=== PATIENT | female | born 1945 | race Caucasian/White ===

== ENCOUNTER → 2024-01-05 07:50 | Outpatient (REF) | payer MEDICARE, OTHER, SELFPAY | LOC: RAD 07:50 | PROVIDERS: ATTENDING PHYSICIAN Nurse Practitioner Family | DX: M81.0 Age-related osteoporosis without current pathological fracture (principal) | CPT/HCPCS: 77063; 77067 ==

== ENCOUNTER → 2024-02-13 07:23 | Outpatient (REF) | payer MEDICARE, OTHER, SELFPAY | LOC: RAD 07:23 | PROVIDERS: ATTENDING PHYSICIAN Nurse Practitioner Family | DX: M81.0 Age-related osteoporosis without current pathological fracture (principal) | CPT/HCPCS: 77080 ==

== ENCOUNTER 2024-04-27 22:45 | Emergency (ER) | payer MEDICARE, OTHER, SELFPAY ==
[2024-04-27 22:48] VITALS: BP 148/78
[2024-04-28 00:10] VITALS: BP 137/60
[2024-04-28 02:01] LABS: Hematocrit 38.4 % (37.0-47.0); Hemoglobin 12.6 g/dL (12.0-16.0); Mean Corp Hgb Conc. 32.8 g/dL (33.0-37.0); Mean Corpuscular Hgb 28.6 pg (27.0-31.0); Mean Corpuscular Volume 87.1 fL (81.0-99.0); Mean Platelet Volume 9.5 fL (7.4-10.4); Platelet Count 227 10^3/uL (130-400); Red Blood Cell Count 4.41 10^6/uL (4.20-5.40); Red Cell Dist. Width 14.8 % (11.5-14.5); White Blood Cell Count 4.5 10^3/uL (4.8-10.8)
[2024-04-28 02:15] LABS: Blood Urea Nitrogen 26 mg/dl (7-17); Calcium 8.8 mg/dl (8.4-10.2); Carbon Dioxide 28 mmol/L (22-30); Chloride 104 mmol/L (98-107); Glucose 85 mg/dl (70-99); Magnesium 2.2 mg/dl (1.6-2.3); Potassium 4.1 mmol/L (3.5-5.1); Sodium 137 mmol/L (135-145); eGFR > 60.00
[2024-04-28 02:18] VITALS: BP 142/54
[2024-04-28 02:27] LABS: Troponin I < 0.012 ng/ml
--- NOTE | 2024-04-28 02:48 | ED.GENMED ---
History of Present Illness
General
Chief Complaint: Extremity Pain (non-traumatic)
Source: patient
Exam Limitations: none
Time Seen by Provider: 04/28/24 01:12
Nursing documentation reviewed up to this point in time: agreed with
History of Present Illness
History of Present Illness:
Patient presents to ED secondary to sudden onset of left arm pain, on approximately 4 hours prior to arrival. Patient states that he had fallen asleep early in the afternoon. Around 9 PM, she woke up as her phone vibrated with incoming text
message. She lifted her left arm backwards to turn on the lamp. That is when she experienced left shoulder discomfort. When she laid her arm down, slowly shoulder discomfort improved, but patient at the same time started to experience left arm
numbness tingling sensation. Patient was concerned that she may be having heart attack. Denies headache. Denies neck pain. Denies chest pain. Denies shortness of breath. Denies dizziness. Denies nausea or vomiting. Denies previous history of
similar symptoms. However, patient does report carrying heavy grocery bags 1 day prior. Patient denies history of stroke or heart attack. Denies recent injury. Denies recent change in medications or diet. At the time of evaluation ED, patient
states that her symptoms have resolved completely.
Past History
Past History
ED Past Medical History: None
ED Past Surgical History: Gynecological and Orthopedic
Social History
Tobacco: Non-smoker
Alcohol: Former (Recovering alcoholic)
Drug: None
Living: alone
Employment: Not employed
Family History
Family History: Other ([place])
Review of Systems
Review of Systems
Allergies reviewed?: Yes
Constitutional: Reports no symptoms; Denies fever or chills
Respiratory: Reports no symptoms; Denies trouble breathing
Cardiac: Reports no symptoms; Denies chest pain
ABD/GI: Reports no symptoms; Denies abdominal pain, nausea or vomiting
: Reports no symptoms
Musculoskeletal: Reports other (arm/shoulder pain)
Skin: Reports no symptoms
Neurological: Reports numbness; Denies dizzy, headache or weakness
Phy Exam
Physical Exam
Physical Exam:
Physical Exam
General: no apparent distress, not acutely ill. afebrile
Head: nc/at. eomi
Neck: supple. no meningeal signs. normal range of motion
Heart: s1/s2 regular rate and rhythm, no murmur. equal radial pulses.
Lungs: no acute respiratory distress. clear bilaterally
Abdomen: normal bowel sounds. not tender.
Neuro: alert and oriented. no focal neurological deficits
Skin: no rash
Psychiatric: well kept. interactive and cooperative
Extremities: no edema.
Course
Orders/Labs/Results
Orders:
Orders
04/27/24 22:51
EKG [Electrocardiogram (*1)] Urgent
Reason for Study: Chest Pain
EKG- Treatment ONCE
04/28/24 01:35
CT Head W/o Iv Contrast Urgent
Comment:
Reason For Exam: left arm numbness
04/28/24 01:54
Basic Metabolic Panel Urgent
Complete Blood Count/No Diff Urgent
Magnesium Urgent
Troponin I Urgent
Abnormal Lab Results
04/28/24
01:54
WBC 4.5 L 10^3/uL
(4.8-10.8)
MCHC 32.8 L g/dL
(33.0-37.0)
RDW 14.8 H %
(11.5-14.5)
BUN 26 H mg/dl
(7-17)
04/28/24 01:54
04/28/24 01:54
Vital Signs
Initial and Last Documented VS:
Initial Vital Signs
Temp Pulse Resp BP Pulse Ox
98 F 56 16 148/78 100
04/27/24 22:48 04/27/24 22:48 04/27/24 22:48 04/27/24 22:48 04/27/24 22:48
Last Documented Vital Signs
Temp Pulse Resp BP Pulse Ox
98 F 57 13 145/57 100
04/27/24 22:48 04/28/24 05:00 04/28/24 05:00 04/28/24 04:00 04/28/24 05:00
MDM/Problems Addressed
MDM/Problems Addressed:
Patient with an unremarkable workup in ED, including CT head and blood work, along with EKG. Patient's presenting symptoms less likely CVA or ACS, but more likely musculoskeletal in etiology, as symptoms started when she reached behind her head,
likely causing nerve impingement. As such, patient will be discharged home in stable condition, with recommendation to follow-up with her PCP for reevaluation as an outpatient, with consideration to return to ED with recurrent symptoms.
*EKG
Interpreted by ED Provider?: Yes
EKG Intrepretation Date: 04/28/24
Heart Rate: 55
Rate: bradycardiac
Rhythm: sinus
[place]: normal axis
Interval: normal interval
*Critical Care Note
Total Time (30-74mins, 75-104mins- exclusive of procedures): Not Applicable
ED Attending Note
-
Portions of this chart may have been created with voice recognition software.� Occasional wrong word or��sound alike� substitutions may have occurred due to the inherent limitations of voice recognition software.
Discharge Plan
Departure
Patient Disposition: Home (Routine Discharge)
Date of Disposition: 04/28/24
Time of Disposition: 02:54
Patient with high blood pressure during this ER visit?: Yes
Discharge Problem:
Musculoskeletal pain
Instructions: Musculoskeletal Pain
Prescriptions:
No Action
fluoxetine 10 MG capsule
40 tab PO DAILY
Referrals:
Erica Garcia CRNP [Family Provider] -
Activity Restrictions/Additional Instructions:
As discussed, please follow-up with your primary care physician for reevaluation. Please consider return to ED with recurrent symptoms.
Interventions
Interventions:
*Risk Screen - Suicide Last Done: 04/27/24 22:48
*General Assessment Last Done: 04/27/24 22:48
*Neglect/Abuse Screening Last Done: 04/27/24 22:48
ED- Fall Risk Assessment Last Done: 04/28/24 05:00
*ED COVID-19 Vaccine History Last Done: 04/28/24 00:02
*Nursing Disposition Last Done: 04/28/24 05:00
ED-Skin Assessment Last Done: 04/28/24 00:05
ED-Peripheral Vascular Assessment Last Done: 04/28/24 00:02
ED-Musculoskeletal Assessment Last Done: 04/28/24 00:02
Discharge Date and Time
Discharge Date/Time: 04/28/24 05:00
Print Language: BAHRAINI
[2024-04-28 03:00] VITALS: BP 131/51
[2024-04-28 04:00] VITALS: BP 145/57
== END 2024-04-28 05:00 | disposition home or self-care (01) ==
LOC: EMR 22:45
PROVIDERS: EMERGENCY PHYSICIAN Emergency Medicine; FAMILY PHYSICIAN Nurse Practitioner Family
DX: M79.18 Myalgia, other site (principal)
CPT/HCPCS: 99284; 70450; 80048; 83735; 84484; 85027; 93005

== ENCOUNTER 2024-05-22 11:53 | Outpatient (RCR) | payer MEDICARE, OTHER, SELFPAY | END 2024-05-22 14:18 | disposition home or self-care (01) | LOC: RPT 11:53 | PROVIDERS: ATTENDING PHYSICIAN Orthopaedic Surgery; FAMILY PHYSICIAN Nurse Practitioner Family | DX: M25.559 Pain in unspecified hip (principal); Z91.81 History of falling; Z73.6 Limitation of activities due to disability | CPT/HCPCS: 97110; 97112; 97161; 97535 ==

== ENCOUNTER → 2024-12-11 07:38 | Outpatient (REF) | payer MEDICARE, OTHER, SELFPAY ==
[2024-12-11 09:00] LABS: Hematocrit 39.2 % (37.0-47.0); Hemoglobin 12.4 g/dL (12.0-16.0); Mean Corp Hgb Conc. 31.6 g/dL (33.0-37.0); Mean Corpuscular Volume 86.9 fL (81.0-99.0); Nucleated Red Blood Cells % 0 %; Platelet Count 261 10^3/uL (130-400); Red Cell Dist. Width 14.8 % (11.5-14.5)
[2024-12-11 09:06] LABS: Urine Character Clear (Clear)
[2024-12-11 10:08] LABS: ALT (SGPT) 19 U/L (0-35); AST (SGOT) 25 U/L (14-36); Albumin 4.2 g/dl (3.5-5.0); Alkaline Phosphatase 94 U/L (38-126); Blood Urea Nitrogen 25 mg/dl (7-17); Calcium 9.3 mg/dl (8.4-10.2); Carbon Dioxide 28 mmol/L (22-30); Chloride 103 mmol/L (98-107); Glucose 83 mg/dl (70-99); HDL Cholesterol 88 mg/dl; LDL Cholesterol, Calculated 117 mg/dl; Potassium 5.5 mmol/L (3.5-5.1); Sodium 134 mmol/L (135-145); Total Protein 6.4 g/dl (6.3-8.2); Very Low Density Lipoprotein 13 mg/dl (0-30); eGFR > 60.00
[2024-12-11 12:19] LABS: Vitamin D, 25-OH*** 50.8 ng/mL (30-80)
[2024-12-11 12:52] LABS: Vitamin B12 919 pg/ml (239-931)
== END ==
LOC: REG 07:38
PROVIDERS: ATTENDING PHYSICIAN Nurse Practitioner Family
DX: Z13.89 Encounter for screening for other disorder (principal); Z13.1 Encounter for screening for diabetes mellitus; Z13.0 Encounter for screening for diseases of the blood and blood-forming organs and certain disorders involving the immune mechanism; E78.00 Pure hypercholesterolemia, unspecified; E53.8 Deficiency of other specified B group vitamins; E55.9 Vitamin D deficiency, unspecified
CPT/HCPCS: 36415; 80053; 80061; 81003; 82306; 82607; 85025

== ENCOUNTER → 2025-01-09 07:48 | Outpatient (REF) | payer MEDICARE, OTHER, SELFPAY | LOC: WDC 07:48 | PROVIDERS: ATTENDING PHYSICIAN Nurse Practitioner Family | DX: Z12.31 Encounter for screening mammogram for malignant neoplasm of breast (principal) | CPT/HCPCS: 77063; 77067 ==

== ENCOUNTER 2025-01-22 09:12 | Emergency (ER) | payer MEDICARE, OTHER, SELFPAY ==
[2025-01-22 09:27] VITALS: BP 133/61
--- NOTE | 2025-01-22 11:07 | ED.GENMED ---
History of Present Illness
General
Chief Complaint: Musculo-Skeletal Complaint
Source: patient
Exam Limitations: none
Time Seen by Provider: 01/22/25 10:53
Nursing documentation reviewed up to this point in time: agreed with
History of Present Illness
History of Present Illness:
79-year-old female with past medical history of previous alcohol use sober for over 20+ years presents to the ER for evaluation of right foot pain. She started with some right foot pain yesterday but denies any injury. She denies any redness
swelling fever chills.
Past History
Past History
ED Past Medical History: None
ED Past Surgical History: Gynecological and Orthopedic
Social History
Tobacco: Non-smoker
Alcohol: Former (Recovering alcoholic)
Drug: None
Living: alone
Employment: Not employed
Family History
Family History: Other ([place])
Phy Exam
General Physical Exam
General Presentation: no apparent distress
General age: appears stated age
General Skin: warm and dry
General Habitus: normal
General Mental: alert
General Hydration: appears well hydrated
Neurological Exam
Neurological Exam: alert and oriented x3
Musculoskeletal Exam
Musculoskeletal Exam: other (Strong distal pulses to right lower extremity with no obvious swelling or erythema no bony tenderness no calf tenderness)
Skin Exam
Skin Exam: normal color and warm/dry
Psychiatric Exam
Psychiatric Exam: normal mood/affect
Course
Orders/Labs/Results
Orders:
Orders
01/22/25 11:06
Foot, Right 3 View [CR Foot - Right Min 3 Views] Urgent
Comment:
Reason For Exam: pain
Vital Signs
Initial and Last Documented VS:
Initial Vital Signs
Temp Pulse Resp BP Pulse Ox
98.4 F 70 16 133/61 97
01/22/25 09:27 01/22/25 09:27 01/22/25 09:27 01/22/25 09:27 01/22/25 09:27
Last Documented Vital Signs
Temp Pulse Resp BP Pulse Ox
98.4 F 70 16 133/61 97
01/22/25 09:27 01/22/25 09:27 01/22/25 09:27 01/22/25 09:27 01/22/25 11:10
MDM/Problems Addressed
Differential Diagnosis Includes:
not limited to arthrits
MDM/Problems Addressed:
Patient presents with foot pain no obvious injury no evidence of infection on exam she is in no acute distress and well-appearing considerations include arthritis. No tenderness over MTP joint prior history of alcohol abuse sober for 20+ years no
evidence of gout on exam we will check x-ray and if negative discharge with nsaids as needed and f/u w/ podiatry.
*Radiology
Radiology exam reviewed: radiology read reviewed
*Pulse Oximetry
SaO2: 97
Oxygen Mode of Delivery: Room air
Patient hypoxic: no
*Critical Care Note
Total Time (30-74mins, 75-104mins- exclusive of procedures): Not Applicable
ED Attending Note
-
Portions of this chart may have been created with voice recognition software.� Occasional wrong word or��sound alike� substitutions may have occurred due to the inherent limitations of voice recognition software.
Discharge Plan
Departure
Patient Disposition: Home (Routine Discharge)
Date of Disposition: 01/22/25
Time of Disposition: 11:55
Patient with high blood pressure during this ER visit?: Yes
Condition: Fair
Covid-19: Not Applicable
Discharge Problem:
Acute foot pain
Instructions: Muscle and Bone Pain (DC), Ibuprofen
Prescriptions:
No Action
fluoxetine 10 MG capsule
40 tab PO DAILY
Referrals:
Erica Garcia CRNP [Family Provider, Family Practice]
Verderame,Kaye M., DPM [Specified Professional Personl, Podiatry]
Activity Restrictions/Additional Instructions:
As discussed you may take ibuprofen for discomfort every 8 hours. Please follow-up with podiatry. Call tomorrow to make an appointment return if any worsening of symptoms.
Interventions
Interventions:
*Risk Screen - Suicide Last Done: 01/22/25 09:27
*General Assessment Last Done: 01/22/25 11:14
*Neglect/Abuse Screening Last Done: 01/22/25 11:14
*ED COVID-19 Vaccine History Last Done: 01/22/25 11:14
ED-Musculoskeletal Assessment Last Done: 01/22/25 11:14
Discharge Date and Time
Print Language: MALTESE
== END 2025-01-22 12:15 | disposition home or self-care (01) ==
LOC: EMR 09:12
PROVIDERS: EMERGENCY PHYSICIAN Student in an Organized Health Care Education/Training Program; FAMILY PHYSICIAN Nurse Practitioner Family
DX: M79.671 Pain in right foot (principal); R03.0 Elevated blood-pressure reading, without diagnosis of hypertension
CPT/HCPCS: 99283; 73630

== ENCOUNTER 2025-02-12 06:23 | Day surgery (SDC) | payer MEDICARE, OTHER, SELFPAY | END 2025-02-12 12:17 | disposition home or self-care (01) | LOC: GI 06:23 | PROVIDERS: ATTENDING PHYSICIAN Internal Medicine | DX: Z12.11 Encounter for screening for malignant neoplasm of colon (principal); K57.30 Diverticulosis of large intestine without perforation or abscess without bleeding; K64.4 Residual hemorrhoidal skin tags; K63.5 Polyp of colon; Z86.0101 Personal history of adenomatous and serrated colon polyps | CPT/HCPCS: 45385; 88305 ==